=== PATIENT | male | born 1965 | race Caucasian/White ===

== ENCOUNTER 2017-11-26 10:10 | Inpatient (IN) | payer BC ==
[~2017-11-26] VITALS: Ht 182.9 cm; Wt 134.3 kg
[2017-11-26 10:19] VITALS: Ht 182.9 cm; Wt 134.3 kg
[2017-11-26 10:41] LABS: BASOPHIL % 0.8 % (0-2); PLATELET COUNT 223 x10^3mcL (130-400); RED CELL DISTRIBUTION WIDTH 13.6 % (11.5-14.5)
[2017-11-26 11:01] LABS: CALCIUM 8.9 mg/dL (8.5-10.1); CARBON DIOXIDE 31.2 mmol/L (21-32); CHLORIDE SERUM 98 mmol/L (98-107); CREATININE SERUM 1.1 mg/dL (0.7-1.3); GFR1 > 60 mL/min; GLUCOSE SERUM 148 mg/dL (74-106); POTASSIUM SERUM 4.2 mmol/L (3.5-5.1); SODIUM SERUM 138 mmol/L (136-145)
[2017-11-26 11:05] LABS: ALBUMIN 4.1 g/dL (3.4-5.0); ALKALINE PHOSPHATASE 66 U/L (46-116); ALT/SGPT 54 U/L (16-63); AST/SGOT 54 U/L (15-37); BILIRUBIN TOTAL 1.7 mg/dL (0.20-1.00)
[2017-11-26 11:06] LABS: TOTAL PROTEIN, SERUM 8.3 g/dL (6.4-8.2)
[2017-11-26] MEDS ORDERED: LOSARTAN (11:14)
[2017-11-26] MEDS ORDERED: TENORMIN50 MG PO (11:14)
[2017-11-26] MEDS ORDERED: METFORMIN ER500 M1 PO (11:15)
[2017-11-26 12:05] VITALS: BP 137/85
[2017-11-26 13:04] LABS: microscopic required? NO
[2017-11-26 13:05] LABS: MAGNESIUM 2.1 mg/dL (1.8-2.4); PHOSPHOROUS 4.2 mg/dL (2.5-4.9)
[2017-11-26 13:08] LABS: urine erythrocyte NEGATIVE (NEGATIVE)
[2017-11-26 13:08] LABS: CHOLESTEROL/HDL RATIO 4.3
[2017-11-26 13:16] LABS: AMPHETAMINE QUAL UR NONE DETECTED (NEG <=1000)
[2017-11-26 13:19] LABS: FREE T4 1.05 ng/dL (0.76-1.46); FREE THYROXINE INDEX 2.7 ug/dL (1.4-4.5); T4(THYROXINE) 7.7 ug/dL (4.7-13.3)
[2017-11-26 13:21] LABS: T3 TOTAL 1.15 ng/mL
[2017-11-26 17:20] VITALS: BP 127/87
[2017-11-26 21:16] VITALS: BP 133/87
[2017-11-27 03:51] LABS: BASOPHIL % 0.8 % (0-2); PLATELET COUNT 182 x10^3mcL (130-400); RED CELL DISTRIBUTION WIDTH 13.3 % (11.5-14.5)
[2017-11-27 04:19] LABS: CALCIUM 8.5 mg/dL (8.5-10.1); CARBON DIOXIDE 31.9 mmol/L (21-32); CHLORIDE SERUM 100 mmol/L (98-107); GFR1 > 60 mL/min; GLUCOSE SERUM 121 mg/dL (74-106); PHOSPHOROUS 3.9 mg/dL (2.5-4.9); POTASSIUM SERUM 3.9 mmol/L (3.5-5.1); SODIUM SERUM 138 mmol/L (136-145)
[2017-11-27 05:49] VITALS: BP 137/65
[2017-11-27] MEDS ORDERED: LOVASTATIN40 MG PO (10:02)
[2017-11-27] MEDS ORDERED: ECO81 PO (10:02)
[2017-11-27 10:04] VITALS: BP 137/82
[2017-11-27] MEDS ORDERED: FIORICET1 CAP PO (10:34)
[2017-11-27 12:41] VITALS: BP 137/82
[2017-11-27 13:54] VITALS: BP 142/96
[2017-11-27] MEDS ORDERED: ACCU-CHEK AVIV1 EAC1 MC (15:06)
[2017-11-27] MEDS ORDERED: TEST STRIPS1 EACH MC (15:06)
[2017-11-27] MEDS ORDERED: ACCU-CHEK FAST1 EACH MC (15:06)
== END 2017-11-27 15:13 | disposition home or self-care (01) | DRG 74 ==
LOC: ED 10:10 → DU 11:03
PROVIDERS: Emergency Medicine; Family Medicine
DX: G90.8 Other disorders of autonomic nervous system (principal); Z91.010 Allergy to peanuts; I11.9 Hypertensive heart disease without heart failure; E78.5 Hyperlipidemia, unspecified; Z91.19 Patient's noncompliance with other medical treatment and regimen; H40.9 Unspecified glaucoma; Z90.49 Acquired absence of other specified parts of digestive tract; Z98.42 Cataract extraction status, left eye; Z98.41 Cataract extraction status, right eye; E11.65 Type 2 diabetes mellitus with hyperglycemia
CPT/HCPCS: 83880; 84439; G0480; J2405; J3010; J7030; Q0092